=== PATIENT | male | born 1955 | race Caucasian/White ===

== ENCOUNTER 2021-01-10 18:55 | Emergency (ER) | payer MEDICARE, OTHER ==
[2021-01-10] MEDS ORDERED: Ketorolac 30 MG/ML SDV IM ONE (20:36)
[2021-01-10] MEDS ORDERED: cefTRIAXone 1 GM Vial IM ONE (20:36)
--- NOTE | 2021-01-10 20:43 | EDM.PDOC ---
ED HPI GENERAL MEDICAL PROBLEM - General Chief Complaint: ENT Problem Stated Complaint: TOOTHACHE Time Seen by Provider: 01/10/21 20:05 Source of Information: Reports: Patient History Limitations: Reports: No Limitations - History of Present Illness INITIAL COMMENTS - FREE TEXT/NARRATIVE: Jairo is a 65-year-old male presenting to the ED for increased mouth swelling, pain, and fever. The patient has poor dentition and his partials have been rubbing on his gums causing increased irritation to the point where he cannot put his partials in anymore. He comes in tonight after trying ibuprofen for pain control and is absolutely miserable. He does have a normal dentist but he is not able to get into them until Wednesday. - Related Data Allergies Allergy/AdvReac Type Severity Reaction Status Date / Time No Known Allergies Allergy Verified 01/10/21 20:06 Home Meds: Home Meds Aspirin [Low Dose Aspirin EC] 81 mg PO DAILY 01/10/21 [History] Folic Acid 1 mg PO DAILY 01/10/21 [History] Vit D3/Vit K2/Calc Frutoborate [Move Free Aobhc-Efmtop-Q6-D3] 1 each PO DAILY 01/10/21 [History] lisinopriL [Lisinopril] 10 mg PO DAILY 01/10/21 [History] Past Medical History HEENT History: Reports: Impaired Vision Cardiovascular History: Reports: Hypertension Musculoskeletal History: Reports: Other (See Below) Other Musculoskeletal History: 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 - Past Surgical History HEENT Surgical History: Reports: Adenoidectomy, Tonsillectomy Social & Family History - Tobacco Use Tobacco Use Status *Q: Current Every Day Tobacco User Years of Tobacco use: 12 Packs/Tins Daily: 0.5 - Caffeine Use Caffeine Use: Reports: Coffee, Soda - Alcohol Use Days Per Week of Alcohol Use: 2 Number of Drinks Per Day: 5 Total Drinks Per Week: 10 - Recreational Drug Use Recreational Drug Use: Yes Recreational Drug Type: Reports: Marijuana/Hashish Recreational Drug Use Frequency: Monthly ED ROS ENT - Review of Systems Review Of Systems: See Below Constitutional: Reports: Fever, Chills, Decreased Appetite HEENT: Reports: Dental Pain, Throat Pain ED EXAM, ENT - Physical Exam Exam: See Below Exam Limited By: No Limitations General Appearance: Alert, Moderate Distress Mouth/Throat: Dental Abcess (Patient has a dental abscess around tooth #21 with tooth #18, 19, and 20 being absent. He also has a dental abscess around tooth #11.), Dental Pain, Dental Tenderness (Tooth #21 is eroded down to the gingival line with exposed dentin), Gum Swelling Head: Atraumatic, Normocephalic Neck: Lymphadenopathy (L) Course - Vital Signs Last Recorded V/S: Last Vital Signs Temp 36.6 C 01/10/21 20:10 Pulse 90 01/10/21 20:10 Resp 20 01/10/21 20:10 BP 182/97 H 01/10/21 20:10 Pulse Ox 99 01/10/21 20:10 - Orders/Labs/Meds Meds: Medications Discontinued Medications Generic Name Dose Route Start Last Admin Trade Name Rolo PRN Reason Stop Dose Admin Ceftriaxone Sodium 2 gm 01/10/21 20:36 Ceftriaxone 1 Gm Vial IM 01/10/21 20:37 ONETIME ONE Ketorolac Tromethamine 30 mg 01/10/21 20:36 Ketorolac 30 Mg/Ml Sdv IM 01/10/21 20:37 ONETIME ONE - Re-Assessments/Exams Free Text/Narrative Re-Assessment/Exam: 01/10/21 20:41 the patient has evidence for 2 dental abscesses one involving tooth #21 and the other involving tooth #11. We will start him on antibiotics with an injection of ceftriaxone 2 g IM and Toradol 30 mg IM for pain. I plan on sending him home with clindamycin 300 mg 3 times daily for 10 days and tramadol for pain control as needed. Patient will follow up with his dentist as soon as he can on Wednesday. Tooth #21 will likely need to be excised as it is fractured down to the gumline and has exposed dentin and pulp. Indications return to the ED were discussed and the patient was discharged in satisfactory condition. Departure - Departure Time of Disposition: 21:10 Disposition: Home, Self-Care Clinical Impression: Dental abscess, Dental caries Fracture of tooth Qualifiers: Encounter type: initial encounter Fracture type: closed Qualified Code(s): S02.5XXA - Fracture of tooth (traumatic), initial encounter for closed fracture - Discharge Information Referrals: PCP,None [Primary Care Provider] - Care Plan Goals: I am placing you on an antibiotic called clindamycin. You will need to take 2 capsules by mouth 3 times a day for the next 10 days. I am also supplying you with a small amount of tramadol for moderate to severe pain. I would like you to do either your aspirin or ibuprofen as the baseline of your pain management and use the tramadol sparingly. Follow-up with your dentist next week. Sepsis Event Note (ED) - Evaluation Sepsis Screening Result: No Definite Risk - Focused Exam Vital Signs: Vital Signs Temp Pulse Resp BP Pulse Ox 01/10/21 20:10 36.6 C 90 20 182/97 H 99 - Problem List & Annotations (1) Dental abscess SNOMED Code(s): 314298563 Code(s): K04.7 - PERIAPICAL ABSCESS WITHOUT SINUS Status: Acute Priority: Low Current Visit: Yes (2) Dental caries SNOMED Code(s): 12206552 Code(s): K02.9 - DENTAL CARIES, UNSPECIFIED Status: Acute Priority: Low Current Visit: Yes (3) Fracture of tooth SNOMED Code(s): 09226001 Code(s): S02.5XXA - FRACTURE OF TOOTH (TRAUMATIC), INIT FOR CLOS FX Status: Acute Priority: Low Current Visit: Yes Qualifiers: Encounter type: initial encounter Fracture type: closed Qualified Code(s): S02.5XXA - Fracture of tooth (traumatic), initial encounter for closed fracture - Problem List Review Problem List Initiated/Reviewed/Updated: Yes
== END 2021-01-10 21:34 | disposition home or self-care (01) ==
LOC: JP.ED 18:55
DX: K04.7 Periapical abscess without sinus (principal); K03.81 Cracked tooth; K02.9 Dental caries, unspecified; I10 Essential (primary) hypertension; Z72.0 Tobacco use; Z79.82 Long term (current) use of aspirin; Z79.899 Other long term (current) drug therapy
CPT/HCPCS: 96372; 99282; J0696; J1885

== ENCOUNTER 2021-01-11 07:53 | Emergency (ER) | payer MEDICARE, OTHER ==
--- NOTE | 2021-01-11 08:27 | EDM.PDOC ---
ED HPI GENERAL MEDICAL PROBLEM - General Chief Complaint: ENT Problem Stated Complaint: LT SIDE TOOTH PAIN Time Seen by Provider: 01/11/21 08:10 Source of Information: Reports: Patient History Limitations: Reports: No Limitations - History of Present Illness INITIAL COMMENTS - FREE TEXT/NARRATIVE: 65-year-old male with left mandibular swelling and pain, seen last night given 2 g of ceftriaxone and started on clindamycin. He took 1 tramadol early this morning and it did not help with his pain in fact it made him somewhat nauseous and he still in a lot of discomfort this morning so he wonders if there is other options. He is taking his antibiotic. No fevers or chills. He is going to the dentist on Wednesday. Onset: Gradual Duration: Day(s): (Pain onset this pain over the last 2 to 3 days) Location: Reports: Other (Left mandible, some pain in the maxillary area as well) Associated Symptoms: Reports: No Other Symptoms Tooth/Teeth Pain Score (Numeric/FACES): 9 - Related Data Allergies Allergy/AdvReac Type Severity Reaction Status Date / Time No Known Allergies Allergy Verified 01/11/21 08:29 Home Meds: Home Meds Aspirin [Low Dose Aspirin EC] 81 mg PO DAILY 01/10/21 [History] Folic Acid 1 mg PO DAILY 01/10/21 [History] Vit D3/Vit K2/Calc Frutoborate [Move Free Hlhux-Wlicjr-V6-D3] 1 each PO DAILY 01/10/21 [History] lisinopriL [Lisinopril] 10 mg PO DAILY 01/10/21 [History] Clindamycin HCl 300 mg PO QID 01/11/21 [History] Past Medical History HEENT History: Reports: Impaired Vision Cardiovascular History: Reports: Hypertension Musculoskeletal History: Reports: Other (See Below) Other Musculoskeletal History: 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 Denies: Vomiting Skin: Denies: Erythema (No erythema over the jaw, no warmth) Neurological: Denies: Headache ED EXAM, ENT - Physical Exam Exam: See Below Exam Limited By: No Limitations General Appearance: Alert, Mild Distress (Looks fairly uncomfortable) Mouth/Throat: Other (Patient continues to have fairly significant gingival swelling and erythema along the left maxillary molars, the area is tender to palpation but he has no mucosal swelling) Neck: No: Lymphadenopathy (R), Lymphadenopathy (L) Respiratory/Chest: No Respiratory Distress, Lungs Clear Neurological: Alert, Oriented Psychiatric: Normal Affect, Normal Mood Skin: Warm, Dry Course - Vital Signs Last Recorded V/S: Last Vital Signs Temp 97.0 F 01/11/21 08:35 Pulse 110 H 01/11/21 08:35 Resp 18 01/11/21 08:35 BP 164/104 H 01/11/21 08:35 Pulse Ox 98 01/11/21 08:35 - Orders/Labs/Meds Meds: Medications Discontinued Medications Generic Name Dose Route Start Last Admin Trade Name Freq PRN Reason Stop Dose Admin Ketorolac Tromethamine 30 mg 01/11/21 08:33 01/11/21 08:38 Ketorolac 30 Mg/Ml Sdv IM 01/11/21 08:34 30 mg ONETIME ONE Administration - Re-Assessments/Exams Free Text/Narrative Re-Assessment/Exam: 01/11/21 09:56 Patient was offered a dental block but declined, he had very good response to the IM Toradol yesterday and it was repeated at 30 mg. He was given instymed for Toradol to take 3 times a day along with Percocet, 15 total, and was told to stop the tramadol. He is going to the dentist on Wednesday, he can return if worsening such as vomiting the medication, increased swelling or fever. Departure - Departure Time of Disposition: 08:46 Disposition: Home, Self-Care 01 Clinical Impression: Dental abscess - Discharge Information Instructions: Dental Abscess, [id number] Referrals: PCP,None [Primary Care Provider] - Forms: ED Department Discharge Care Plan Goals: Use stronger pain medication as directed, continue the antibiotic without missing any doses and see the dentist on Wednesday as planned. Sepsis Event Note (ED) - Focused Exam Vital Signs: Vital Signs Temp Pulse Resp BP Pulse Ox 01/11/21 08:35 97.0 F 110 H 18 164/104 H 98 01/11/21 08:11 97.0 F 110 H 18 164/104 H 98
[2021-01-11] MEDS ORDERED: Ketorolac 30 MG/ML SDV IM ONE (08:33)
== END 2021-01-11 08:47 | disposition home or self-care (01) ==
LOC: JP.ED 07:53
DX: K04.7 Periapical abscess without sinus (principal); I10 Essential (primary) hypertension; Z79.82 Long term (current) use of aspirin
CPT/HCPCS: 96372; 99282; J1885